=== PATIENT | female | born 1955 | race Caucasian/White ===

== ENCOUNTER 2024-04-18 13:11 | Emergency (ER) | payer MEDICARE, OTHER, SELFPAY ==
[2024-04-18 13:25] VITALS: BP 152/79; PULSE 79; RESP 16; TEMP 37.1; O2SAT 97
--- NOTE | 2024-04-18 14:06 | ED_ITS ---
HPI - URI/Sore Throat General Chief Complaint: Upper Respiratory Infection Stated Complaint: cold Time Seen by Provider: 04/18/24 14:06 Source: patient, RN notes reviewed and old records reviewed Mode of arrival: ambulatory Limitations: no limitations History of Present Illness HPI Narrative: patient presents with complaints of 3 weeks of cough. She reports that symptoms have worsened. She reports that she has a cough that is worse in the mornings, often times productive. She is unsure of fever status. She reports over the past couple of days she does become slightly winded when going up the steps or doing heavy housework. She has not been taking anything for her symptoms. She is not in any distress at this time, including respiratory distress. She voices no other concerns or complaints. Related Data Home Medications Medication Instructions Recorded Confirmed timolol maleate 0.5 % eye drops 1 drp DIRECTED 04/18/24 04/18/24 Allergies Allergy/AdvReac Type Severity Reaction Status Date / Time Penicillins Allergy Verified 04/04/11 13:23 Review of Systems Review of Systems: All systems reviewed & are unremarkable except as noted in HPI and below Constitutional: Constitutional: Reports no additional constitutional complaints ENT: Reports system reviewed and no additional complaints, except as documented, Denies nasal congestion and Denies nasal discharge Cardiovascular: Cardiovascular: Reports no additional cardiovascular complaints Respiratory: Respiratory: Reports no additional respiratory complaints, Reports cough and Reports dyspnea on exertion Gastrointestinal: Gastrointestinal: Reports no additional gastrointestinal complaints PMFSH Comments At the time of my signature, I reviewed and agree with the nursing past medical, surgical, social, and family history. There is no relevant family history pertinent to the patient complaint. Exam Const: General: cooperative, no acute distress, alert and awake Orientation/consciousness: oriented to person, oriented to place and oriented to time HENMT: Head: normal to inspection Mouth: Yes moist mucous membranes Throat: posterior oropharynx normal Resp: Effort & Inspection: normal respiratory effort and able to speak in complete sentences Auscultation: crackles bilateral, no rales, no rhonchi and wheezes expiratory wheezes Cardio: Palpation: normal PMI Rate: regular rate Rhythm: regular rhythm Heart sounds: S1 normal heart sound present and S2 normal heart sound present Neuro: General: oriented to person, oriented to place and oriented to time Cranial nerves: Yes CN's II-XII intact bilaterally Psych: Appearance: grossly normal Thought process: Normal thought process present Insight: Good insight present (Psych) Judgement: Good judgement present (Psych) Course Course Level of Care: Express Care Visit Vital Signs Vital signs: Vital Signs Temperature 98.8 F 04/18/24 13:25 Pulse Rate 79 04/18/24 13:25 Respiratory Rate 16 04/18/24 13:25 Blood Pressure 152/79 H 04/18/24 13:25 Pulse Oximetry 97 04/18/24 13:25 Oxygen Delivery Room Air 04/18/24 13:25 Temperature 98.8 F 04/18/24 13:25 Pulse Rate 79 04/18/24 13:25 Respiratory Rate 16 04/18/24 13:25 Blood Pressure 152/79 H 04/18/24 13:25 Pulse Oximetry 97 04/18/24 13:25 Oxygen Delivery Room Air 04/18/24 13:25 Reviewed MDM - URI/Sore Throat MDM Narrative Medical decision making narrative: Patient with 3 weeks of symptoms, she is nontoxic appearing, stable for discharge home on p.o. antibiotic therapy, also prescribed steroids and bronchodilator. Some adventitious lung sounds noted, no chest x-ray obtained as history and physical support diagnosis of pneumonia. Discharge instructions reviewed with patient, as well as provided in writing per nursing staff. The instructions also include specific and strict return/GO TO THE ER as well as f/u information. All questions have been answered, and the patient deny any further questions with discharge and discharge plan. Some parts of this dictation were generated by voice recognition software and may contain typographical and/or grammatical inaccuracies. Differential Diagnosis Differential diagnosis: Likely upper respiratory infection, sinusitis, bronchitis, influenza and pharyngitis Medical Records Attestation: I reviewed the patient's medical records. Discharge Plan Discharge Clinical Impression: Elevated blood pressure reading Pneumonia Qualifiers: Pneumonia type: due to unspecified organism Laterality: unspecified laterality Lung location: unspecified part of lung Qualified Code(s): J18.9 - Pneumonia, unspecified organism Patient Disposition: Home, Self-Care Condition: Stable Instructions: Antibiotic Form, Community Acquired Pneumonia (ED) Additional Instructions: take medications as prescribed. Follow-up with primary care provider. Emergency department for new or worse symptoms Patient Language: Yoruba Prescriptions: New azithromycin 250 mg tablet See Rx Instructions .ROUTE .COMPLEX Qty: 6 0RF Rx Instructions: For 250 mg dose pack: take 500 mg today (day 1), then 250 mg for 4 days (days 2-5) prednisone 50 mg tablet 50 mg PO DAILY Qty: 5 0RF albuterol sulfate [Ventolin HFA] 90 mcg/actuation HFA aerosol inhaler 2 puff inhalation QID PRN (Reason: shortness of breath or wheezing) Qty: 8.5 0RF No Action timolol maleate 0.5 % drops 1 drp DIRECTED Follow-up/Referrals: Rudy,Bishop Gurrola PA-C [Primary Care Provider] - 2 Weeks Time of Disposition: 14:19
== END 2024-04-18 14:28 | disposition home or self-care (01) ==
PROVIDERS: Emergency Provider Nurse Practitioner Family; PCP Physician Assistant
DX: R03.0 Elevated blood-pressure reading, without diagnosis of hypertension (principal); J18.9 Pneumonia, unspecified organism; K50.90 Crohn's disease, unspecified, without complications; H40.9 Unspecified glaucoma
CPT/HCPCS: 99213; G0463